=== PATIENT | female | born 1935 | race Caucasian/White ===

== ENCOUNTER → 2016-07-02 | Outpatient (CLI) | payer MEDICARE, OTHER | LOC: KOH-I 09:36 | DX: R10.9 Unspecified abdominal pain (principal); R21 Rash and other nonspecific skin eruption | CPT/HCPCS: 74177; Q9962 ==

== ENCOUNTER 2016-09-06 10:47 | Emergency (ER) | payer MEDICARE, OTHER | END 2016-09-06 14:30 | disposition home or self-care (01) | LOC: ER1 10:47 | DX: N20.2 Calculus of kidney with calculus of ureter (principal); N39.0 Urinary tract infection, site not specified | CPT/HCPCS: 81001; 87086; 99284 ==

== ENCOUNTER → 2020-05-22 | Outpatient (CLI) | payer MEDICARE, OTHER | LOC: KOH-I 14:29 → HEART 5 05-24 15:00 → KOH-I 05-24 15:00 | DX: I73.9 Peripheral vascular disease, unspecified (principal) | CPT/HCPCS: 93922; 93925 ==

== ENCOUNTER → 2021-04-25 | Outpatient (CLI) | payer MEDICARE, OTHER | LOC: KOH-I 10:56 | DX: R06.02 Shortness of breath (principal); R91.8 Other nonspecific abnormal finding of lung field | CPT/HCPCS: 71046 ==